=== PATIENT | female | born 1955 | race Caucasian/White ===

== ENCOUNTER 2018-05-22 13:01 | Observation (INO) | payer MEDICARE, MEDICAID ==
[2018-05-22 13:36] LABS: #Basophils 0.1 thou/uL (0.0-0.2); #Eosinphils 0.1 thou/uL (0.0-0.7); #Lymphocytes 1.2 thou/uL (1.20-3.40); #Monocytes 0.4 thou/uL (0.11-0.59); #Neutrophils 3.9 thou/uL (1.40-6.50); %Basophils 0.9 % (0.0-1.0); %Eosinophils 1.9 % (0.0-10.0); %Lymphocytes 20.7 % (21.0-51.0); %Monocytes 6.7 % (0.0-10.0); %Neutrophils 69.9 % (42.0-75.0); Giant Platelets SLIGHT; Hemoglobin 16.7 g/dL (12.0-16.0); Large Platelets SLIGHT; MDiff Complete? YES; Mean Corpuscular HGB CONC 34.2 g/dL (32.0-36.0); Mean Corpuscular Hemoglobin 29.2 pg (27.0-31.0); Mean Corpuscular Volume 85.4 fL (78.0-98.0); Mean Platelet Volume 15.5 fL (7.4-10.4); Platelet Count 150 thou/uL (130-400); Platelet Morphology Comment Appears Adequate; RBC Distribution Width 13.2 % (11.5-14.5); Red Blood Cell (RBC) Count 5.71 mill/uL (4.20-5.40); White Blood Cell (WBC) Count 5.6 thou/uL (4.8-10.8)
[2018-05-22 13:45] LABS: ALT (SGPT) 15 U/L (8-55); AST (SGOT) 19 U/L (5-34); Albumin 4.2 g/dL (3.4-4.8); Alkaline Phosphatase 190 U/L (40-150); Anion Gap 20 mmol/L (10-20); BUN (Urea Nitrogen) 12 mg/dL (9.8-20.1); Bilirubin, Total 0.8 mg/dL (0.2-1.2); CK (CPK) 63 U/L (29-168); Calc. Creatinine Clearance 0 mL/min (70-130); Calcium 10.4 mg/dL (7.8-10.44); Carbon Dioxide 18 mmol/L (23-31); Chloride 100 mmol/L (98-107); Estimated GFR-MDRD 46; Globulin 2.7 g/dL (2.4-3.5); Glucose 207 mg/dL (80-115); Potassium 3.2 mmol/L (3.5-5.1); Protein, Total 6.9 g/dL (6.0-8.3); Sodium 135 mmol/L (136-145)
--- NOTE | 2018-05-22 14:38 | RAD ---
CHEST 2 VIEWS: Date: 05/22/18 HISTORY: Mid sternal chest pain. FINDINGS: Heart size is within normal limits. Lungs are clear. No confluent pneumonia, overt edema, or pleural effusion. IMPRESSION: No acute intrathoracic disease. POS: [facility]
[2018-05-22] MEDS ORDERED: Potassium Chloride 20 MEQ TAB ONE (15:20)
[2018-05-22] MEDS ORDERED: Aspirin Chewable 81 MG TAB ONE (15:56)
[2018-05-22] MEDS ORDERED: Nitroglycerin 2% Ointment 1 INCH/1 GM Packet ONE (15:56)
[2018-05-22 16:19] LABS: Troponin I 0.022 ng/mL (< 0.028)
[2018-05-22] MEDS ORDERED: Acetaminophen 325 MG TAB PO PRN (17:16)
[2018-05-22] MEDS ORDERED: Ondansetron PF 4 MG/2 ML Vial IVP PRN (17:16)
[2018-05-22] MEDS ORDERED: Ondansetron ODT 4 MG TAB SL PRN (17:16)
[2018-05-22 17:29] VITALS: BMI 34.8
[2018-05-22] MEDS ORDERED: Nitroglycerin 0.4 MG TAB (25 Tab Bottle) PO PRN (18:41)
[2018-05-22] MEDS ORDERED: HumaLOG 300 UNITS/3 ML VIAL SC PRN (18:43)
[2018-05-22] MEDS ORDERED: Dextrose 5% in Water 1,000 ML IV PRN (18:43)
[2018-05-22] MEDS ORDERED: Dextrose 50% Abboject 50 ML SYRINGE SLOW IVP PRN (18:43)
[2018-05-22] MEDS ORDERED: hydrALAZINE 20 MG/ML VIAL SLOW IVP PRN (18:44)
[2018-05-22 19:15] LABS: Troponin I 0.014 ng/mL (< 0.028)
[2018-05-22] MEDS ORDERED: Amlodipine 5 MG TAB PO SCH (19:15)
--- NOTE | 2018-05-22 19:32 | HP ---
PRIMARY CARE PROVIDER: Dr. De Barlow. CHIEF COMPLAINT: Chest pain. HISTORY OF PRESENT ILLNESS: Please note, Ms. Navarrete recently moved to this area and is in the process of setting up her health care. She has an appointment with Dr. Barlow on May 30, 2018. Ms. Navarrete is a pleasant 63-year-old lady, who was seen at [facility] on May 22, 2018. She has a history of diabetes mellitus and hypertension. She reports that she has not taken her medications in more than a month. She also reports that over the last one month, she has been having retrosternal chest pain. She reports that the pain is worse over the last couple of weeks. She describes it as retrosternal, stabbing, radiating to the left side of her chest and to the left axilla, worse with exertion, 8/10 at its worst, accompanied by shortness of breath, diaphoresis, nausea, and headache. She denies any fevers or chills. She reports that the pain improves with rest. Ms. Navarrete reports that today she almost fell because of lightheadedness accompanying her chest pain and had to lower herself to the ground. She denies any head trauma or loss of consciousness. REVIEW OF SYSTEMS: All other systems reviewed and found to be negative. PAST MEDICAL HISTORY: Diabetes mellitus, type 2 and hypertension. PAST SURGICAL HISTORY: None. PSYCHIATRIC HISTORY: Schizophrenia. SOCIAL HISTORY: The patient denies tobacco use, alcohol use, or recreational drug use. FAMILY HISTORY: Significant for coronary artery disease and cancer in her father. CODE STATUS: I discussed her code status. She is DNAR. ALLERGIES: CODEINE. CURRENT MEDICATIONS: None, since she has been noncompliant with her medications. PHYSICAL EXAMINATION: GENERAL: On examination, Ms. Navarrete is awake and alert, not in acute distress. VITAL SIGNS: Blood pressure is 191/90, pulse 69, respiratory rate 16, and oxygen saturation 96% on room air. She is afebrile. She is obese, with a BMI of 34.9. EYES: No scleral icterus. No conjunctival pallor. ENT: Moist mucosal membranes. No oropharyngeal erythema or exudates. NECK: Supple, nontender, trachea is midline. RESPIRATORY: Accessory muscles of breathing are not active. Chest wall movements are symmetric bilaterally. Lungs are clear to auscultation without wheeze, rhonchi, or crepitations. CARDIOVASCULAR: S1 and S2 are heard, regular. Peripheral pulses palpable. No carotid bruit. No pericardial rub. ABDOMEN: Soft, nontender, bowel sounds are heard, no hepatomegaly, no splenomegaly. NEUROLOGIC: Cranial nerves 2 through 12 intact, deep tendon reflexes 2+. MUSCULOSKELETAL: Power is 5/5 in all four extremities. SKIN: No rashes or subcutaneous nodules. LYMPHATIC: No cervical lymphadenopathy. PSYCHIATRIC: Normal mood, normal affect, the patient is oriented to person, place, and time. LABORATORY DATA: Ms. Navarrete' labs and investigations were reviewed. I reviewed her electrocardiogram, which shows normal sinus rhythm, no ST changes to suggest an acute coronary syndrome. I also reviewed her chest x-ray, which does not show any pulmonary infiltrates. Normal white count, elevated hemoglobin of 16.7, normal platelet count. Decreased sodium of 135, decreased potassium of 3.2, elevated creatinine of 1.18, elevated alkaline phosphatase of 190, otherwise unremarkable comprehensive metabolic profile. Normal magnesium. Normal TSH. Normal Troponin I. ASSESSMENT AND PLAN: Ms. Navarrete is a pleasant 63-year-old lady, who was seen at [facility] on May 22, 2018. Her problem list includes: 1. Chest pain: Ms. Navarrete is presenting with chest pain of unknown etiology. Given her significant risk factors, she will be admitted to the hospital for telemetry monitoring and to rule out acute coronary syndrome. We will order a nuclear stress test. Further management depending on outcome of the test. We will start her on aspirin at this time. 2. Diabetes mellitus, type 2: Ms. Navarrete has been noncompliant with her medications. We will start her on glipizide, Accu-Cheks, and insulin sliding scale. 3. Hypertension: Her blood pressure is high at this time. We will start her on Norvasc, monitor vital signs, and titrate antihypertensives as needed. 4. History of schizophrenia: She reports history of schizophrenia. She does not recall the name of her medication. This will need to be addressed as outpatient. 5. Hypokalemia: We will replace potassium and recheck. 6. Hyponatremia: We will provide normal saline and recheck her sodium level. Many thanks for allowing me to participate in your patient's care. Please feel free to contact me with any questions or concerns. LEVEL OF RISK: High. LEVEL OF COMPLEXITY: High. Job ID: [id number]
[2018-05-22] MEDS: Heparin 5,000 UNITS/ML VIAL SC SCH (20:23)
[2018-05-23 06:16] LABS: Anion Gap 12 mmol/L (10-20); BUN (Urea Nitrogen) 12 mg/dL (9.8-20.1); Calc. Creatinine Clearance 95 mL/min (70-130); Calcium 9.3 mg/dL (7.8-10.44); Carbon Dioxide 23 mmol/L (23-31); Chloride 108 mmol/L (98-107); Estimated GFR-MDRD 71; Glucose 110 mg/dL (80-115); Potassium 3.4 mmol/L (3.5-5.1); Sodium 140 mmol/L (136-145)
[2018-05-23 06:30] LABS: #Eosinphils 0.2 thou/uL (0.0-0.7); #Lymphocytes 1.4 thou/uL (1.20-3.40); #Monocytes 0.5 thou/uL (0.11-0.59); #Neutrophils 2.3 thou/uL (1.40-6.50); %Basophils 0.3 % (0.0-1.0); %Eosinophils 3.8 % (0.0-10.0); %Lymphocytes 31.5 % (21.0-51.0); %Monocytes 10.5 % (0.0-10.0); %Neutrophils 53.8 % (42.0-75.0); Hemoglobin 14.8 g/dL (12.0-16.0); Mean Corpuscular HGB CONC 33.3 g/dL (32.0-36.0); Mean Corpuscular Hemoglobin 29.4 pg (27.0-31.0); Mean Corpuscular Volume 88.3 fL (78.0-98.0); Mean Platelet Volume 12.8 fL (7.4-10.4); Platelet Count 112 thou/uL (130-400); Platelet Morphology Comment Appears Decreased; RBC Distribution Width 13.7 % (11.5-14.5); RBC Morphology Normal; Red Blood Cell (RBC) Count 5.02 mill/uL (4.20-5.40); White Blood Cell (WBC) Count 4.3 thou/uL (4.8-10.8)
[2018-05-23] MEDS ORDERED: ADENOSINE 60 MG/20 ML VIAL ONE (07:19)
[2018-05-23] MEDS: Amlodipine 5 MG TAB PO SCH (10:11)
[2018-05-23] MEDS: Heparin 5,000 UNITS/ML VIAL SC SCH ×3 (10:12→20:16)
[2018-05-23] MEDS: Aspirin 325 mg Enteric Coated Tablet PO SCH (10:12)
--- NOTE | 2018-05-23 15:23 | NM ---
MYOCARDIAL PERFUSION EVALUATION: CLINICAL HISTORY: A 63-year-old female, with chest pain. RADIOPHARMACEUTICAL: 31.6 mCi and 9 mCi Technetium 99m sestamibi IV administered at stress and rest. Please reference the stress EKG portion of the exam through the division of cardiology for further de tails. FINDINGS: Evaluation of rotational raw data stable patient positioning. There is diminished uptake within the mid to distal anterior septum as well as at the apex. There is reversibility demonstrated with rest imaging. Evaluation of gated imaging reveals wall motion and contractility with an LVEF calculated at 65%. IMPRESSION: Abnormal myocardial perfusion evaluation. There is reversible deficit noted at the mid to distal ant erior septum/apex. No significant wall motion abnormalities. Findings favor ischemia. POS: [facility]
--- NOTE | 2018-05-23 15:58 | PDOC.PN ---
- Subjective Encounter Start Date: 05/23/18 Encounter Start Time: 15:56 Pt seen for followup re: chest pain. Denies chest pain, shortness of breath, fevers or chills. - Objective Resuscitation Status - Order Detail: 05/22/18 18:46 Resuscitation Status Routine Resuscitation Status: DNAR: NO Resuscitation Discussed with: patient BEN Reviewed: Yes Vital Signs & Weight: Vital Signs (12 hours) Temp Pulse Resp BP Pulse Ox 05/23/18 07:22 97.4 F L 63 14 137/69 97 05/23/18 04:14 96 05/23/18 04:13 97.5 F L 60 14 127/63 97 Weight Weight 192 lb 4.8 oz I&O: 05/22/18 05/23/18 05/24/18 06:59 06:59 06:59 Intake Total 1460 Output Total 1000 Balance 460 Result Diagrams: 05/23/18 05:11 05/23/18 05:11 Additional Labs: Accuchecks 05/23/18 05/22/18 05/22/18 05:58 20:23 17:16 POC Glucose 106 330 H 121 H EKG Reviewed by me: Yes (Tele: NSR) Phys Exam - Physical Examination Constitutional: NAD HEENT: moist MMs, sclera anicteric, oral pharynx no lesions, 2+ tonsils Neck: no nodes, no JVD, supple, full ROM Respiratory: clear to auscultation bilateral Cardiovascular: RRR, no rub S1, S2 Neurological: moves all 4 limbs Psychiatric: normal affect Dx/Plan (1) Chest pain Code(s): R07.9 - CHEST PAIN, UNSPECIFIED Status: Acute Comment: Improved, stress test is abnormal, consult cardiology (2) DM2 (diabetes mellitus, type 2) Status: Chronic Comment: continue accuchecks, insulin sliding scale (3) HTN (hypertension) Code(s): I10 - ESSENTIAL (PRIMARY) HYPERTENSION Status: Chronic Comment: controlled (4) Schizophrenia Code(s): F20.9 - SCHIZOPHRENIA, UNSPECIFIED Status: Chronic Comment: Pt to followup with PCP re: treatment - Plan * . Review of Systems - Review of Systems Constitutional: negative: fever, chills, sweats, weakness, malaise Respiratory: negative: Cough, Shortness of Breath, SOB with Excertion, Pleuritic Pain, Wheezing Cardiovascular: negative: chest pain, palpitations, orthopnea, paroxysmal nocturnal dyspnea, edema, light headedness Gastrointestinal: negative: Nausea, Vomiting, Abdominal Pain, Diarrhea, Constipation, Melena, Hematochezia Genitourinary: negative: Dysuria, Frequency, Incontinence, Hematuria, Retention - Medications/Allergies Allergies/Adverse Reactions: Allergies Allergy/AdvReac Type Severity Reaction Status Date / Time codeine Allergy Swollen Verified 05/22/18 17:20 Lips Medications: Current Medications Amlodipine Besylate (Norvasc) 5 mg PO DAILY [facility] Last Admin: 05/23/18 10:11 Dose: Not Given Aspirin (Ecotrin) 325 mg PO DAILY [facility] Last Admin: 05/23/18 10:12 Dose: Not Given Dextrose/Water (Dextrose 50%) 25 gm SLOW IVP PRN PRN PRN Reason: Hypoglycemia Glipizide (Glucotrol Xl) 2.5 mg PO QAM-WM [facility] Last Admin: 05/23/18 10:11 Dose: Not Given Glucagon (Glucagon) 1 mg IM PRN PRN PRN Reason: Hypoglycemia Heparin Sodium (Porcine) (Heparin) 5,000 units SC TID [facility] Last Admin: 05/23/18 15:40 Dose: 5,000 units Hydralazine HCl (Apresoline) 10 mg SLOW IVP Q6H PRN PRN Reason: SBP Greater Than 170 Dextrose/Water (D5w) 1,000 mls @ 0 mls/hr IV .Q0M PRN PRN Reason: Hypoglycemia Potassium Chloride 40 meq/ (Sodium Chloride) 1,020 mls @ 75 mls/hr IV .[id number] [facility] Last Admin: 05/23/18 12:57 Dose: 1,020 mls Insulin Human Lispro (Humalog) 0 units SC .MILD SLIDING SCALE PRN PRN Reason: Mild Correctional Scale Nitroglycerin (Nitrostat) 0.4 mg PO Q5MIN PRN PRN Reason: Chest Pain
[2018-05-23] MEDS ORDERED: Communication Order-Pharmacy FS SCH (19:00)
--- NOTE | 2018-05-23 19:04 | CON ---
DATE OF CONSULTATION: 05/22/2018 REASON FOR CONSULTATION: Chest pain and abnormal stress study. HISTORY OF PRESENT ILLNESS: Ms. Navarrete is a 63-year-old woman with past history of diabetes mellitus and hypertension, who re-presented with chest pain. She states she had been having chest pain with exertion over the last several weeks. It has worsened over the last one week. She recently presented to emergency room with the above. She underwent a noninvasive stress study that did suggest ischemia present in the apex and anteroseptal region. LVEF was normal. PAST MEDICAL HISTORY: As above, schizophrenia. SOCIAL HISTORY: No current tobacco or alcohol use. FAMILY HISTORY: Negative for CAD. ALLERGIES: CODEINE. HOME MEDICATIONS: None. There was concern for compliance. REVIEW OF SYSTEMS: Ten-point review of systems is reviewed and as above, otherwise negative. PHYSICAL EXAMINATION: VITAL SIGNS: Blood pressure 145/82, pulse 64, and temperature 97.6. GENERAL: Patient is a pleasant female, who is in no acute distress. The patient appears their stated age. NEUROLOGIC: The patient is alert and oriented x3 with no focal neurologic deficits. HEENT: Sclerae without icterus. Mouth has moist mucous membranes with normal pallor. NECK: No JVD. Carotid upstroke brisk. No bruits bilaterally. LUNGS: Clear to auscultation with unlabored respirations. BACK: No scoliosis or kyphosis. CARDIAC: Regular rate and rhythm with normal S1 and S2. No S3 or S4 noted. No significant rubs, murmurs, thrills, or gallops noted throughout the precordium. PMI is not displaced. There is no parasternal heave. ABDOMEN: Soft, nontender, nondistended. No peritoneal signs present. No hepatosplenomegaly. No abnormal striae. EXTREMITIES: 2+ femoral and 2+ dorsalis pedis pulses. No cyanosis, clubbing, or edema. SKIN: No gross abnormalities. PERTINENT LABORATORY DATA: Hemoglobin 14.8, hematocrit 44.8. Creatinine 0.81. IMPRESSION: 1. Chronic angina with accelerating symptoms. 2. Abnormal stress study. 3. Risk factors for coronary artery disease. RECOMMENDATIONS: I discussed a conservative versus more aggressive approach. After outlining both, she has opted to proceed with coronary angiography. I discussed the procedure in full detail with Ms. Navarrete. Risks included, but not limited to . All questions were answered. Given the above, the patient agreed to proceed with the above procedure. Further recommendations pending the above. Job ID: [id number] [facility]
[2018-05-24 04:59] LABS: #Eosinphils 0.2 thou/uL (0.0-0.7); #Lymphocytes 1.3 thou/uL (1.20-3.40); #Monocytes 0.3 thou/uL (0.11-0.59); #Neutrophils 1.5 thou/uL (1.40-6.50); %Basophils 1.4 % (0.0-1.0); %Eosinophils 4.7 % (0.0-10.0); %Monocytes 8.5 % (0.0-10.0); %Neutrophils 45.5 % (42.0-75.0); Hemoglobin 14.6 g/dL (12.0-16.0); Mean Corpuscular HGB CONC 33.1 g/dL (32.0-36.0); Mean Corpuscular Hemoglobin 29.3 pg (27.0-31.0); Mean Corpuscular Volume 88.6 fL (78.0-98.0); Mean Platelet Volume 12.5 fL (7.4-10.4); Platelet Count 105 thou/uL (130-400); RBC Distribution Width 13.9 % (11.5-14.5); Red Blood Cell (RBC) Count 4.96 mill/uL (4.20-5.40); White Blood Cell (WBC) Count 3.4 thou/uL (4.8-10.8)
[2018-05-24 05:17] LABS: Anion Gap 14 mmol/L (10-20); BUN (Urea Nitrogen) 9 mg/dL (9.8-20.1); Calc. Creatinine Clearance 93 mL/min (70-130); Calcium 9.5 mg/dL (7.8-10.44); Carbon Dioxide 23 mmol/L (23-31); Chloride 108 mmol/L (98-107); Estimated GFR-MDRD 69; Glucose 132 mg/dL (80-115); Potassium 3.9 mmol/L (3.5-5.1); Sodium 141 mmol/L (136-145)
[2018-05-24] MEDS: Amlodipine 5 MG TAB PO SCH (05:47)
[2018-05-24] MEDS: Aspirin 325 mg Enteric Coated Tablet PO SCH (05:47)
[2018-05-24] MEDS: Heparin 5,000 UNITS/ML VIAL SC SCH ×2 (05:48→16:41)
[2018-05-24] MEDS ORDERED: Iopamidol 370 76% 100 ML VIAL ONE (07:19)
[2018-05-24] MEDS ORDERED: Verapamil 5 MG/2 ML VIAL ONE (10:18)
[2018-05-24] MEDS ORDERED: Adenosine 6 MG/2 ML VIAL ONE (10:18)
[2018-05-24] MEDS ORDERED: Heparin 10,000 UNITS/1 ML VIAL ONE (10:18)
[2018-05-24] MEDS ORDERED: Nitroglycerin 100MG/250ML BOT 0 ML ONE (10:18)
[2018-05-24] MEDS ORDERED: Fentanyl 100 MCG/2 ML VIAL ONE (13:06)
[2018-05-24] MEDS ORDERED: Midazolam HCl 2 mg/2 ml Vial ONE (13:06)
[2018-05-24] MEDS ORDERED: Sodium Chloride 0.9% 200 ML IV PRN (13:20)
[2018-05-24] MEDS ORDERED: Nitroglycerin 0.4 MG TAB (25 Tab Bottle) SL PRN (13:20)
[2018-05-24] MEDS ORDERED: Sodium Chloride 0.9% 1,000 ML IV SCH (13:30)
--- NOTE | 2018-05-24 16:02 | PDOC.PN ---
- Subjective Encounter Start Date: 05/24/18 Encounter Start Time: 12:00 Pt seen for followup re: chest pain. Feels better, no complaints today. - Objective Resuscitation Status - Order Detail: 05/22/18 18:46 Resuscitation Status Routine Resuscitation Status: DNAR: NO Resuscitation Discussed with: patient BEN Reviewed: Yes Vital Signs & Weight: Vital Signs (12 hours) Temp Pulse Resp BP BP Pulse Ox 05/24/18 13:46 97.7 F 60 16 144/73 H 96 05/24/18 11:15 97.8 F 62 21 H 145/75 H 98 05/24/18 07:15 97.4 F L 59 L 24 H 136/65 97 05/24/18 05:47 56 L 143/67 H Weight Weight 191 lb 4.8 oz I&O: 05/23/18 05/24/18 05/25/18 06:59 06:59 06:59 Intake Total 1460 2392 Output Total 1000 1600 Balance 460 792 Result Diagrams: 05/24/18 04:37 05/24/18 04:37 Additional Labs: Accuchecks 05/24/18 05/23/18 05/23/18 10:55 20:51 16:54 POC Glucose 149 H 128 H 127 H EKG Reviewed by me: Yes (Tele: NSR) Phys Exam - Physical Examination Constitutional: NAD HEENT: moist MMs Neck: supple Respiratory: clear to auscultation bilateral Cardiovascular: RRR Gastrointestinal: soft Neurological: moves all 4 limbs Psychiatric: normal affect Dx/Plan (1) Chest pain Code(s): R07.9 - CHEST PAIN, UNSPECIFIED Status: Acute Comment: awaiting cath (2) Hypokalemia Code(s): E87.6 - HYPOKALEMIA Status: Acute Comment: replace potassium (3) DM2 (diabetes mellitus, type 2) Status: Chronic Comment: on accuchecks, insulin sliding scale (4) HTN (hypertension) Code(s): I10 - ESSENTIAL (PRIMARY) HYPERTENSION Status: Chronic Comment: controlled (5) Schizophrenia Code(s): F20.9 - SCHIZOPHRENIA, UNSPECIFIED Status: Chronic Comment: Pt to followup with PCP re: treatment - Plan * . Review of Systems - Review of Systems Cardiovascular: negative: chest pain, palpitations, orthopnea, paroxysmal nocturnal dyspnea, edema, light headedness Gastrointestinal: negative: Nausea, Vomiting, Abdominal Pain, Diarrhea, Constipation, Melena, Hematochezia - Medications/Allergies Allergies/Adverse Reactions: Allergies Allergy/AdvReac Type Severity Reaction Status Date / Time codeine Allergy Swollen Verified 05/22/18 17:20 Lips Medications: Current Medications Amlodipine Besylate (Norvasc) 5 mg PO DAILY [facility] Last Admin: 05/24/18 05:47 Dose: 5 mg Aspirin (Ecotrin) 325 mg PO DAILY [facility] Last Admin: 05/24/18 05:47 Dose: 325 mg Dextrose/Water (Dextrose 50%) 25 gm SLOW IVP PRN PRN PRN Reason: Hypoglycemia Glipizide (Glucotrol Xl) 2.5 mg PO QAM[facility] Last Admin: 05/24/18 05:47 Dose: Not Given Glucagon (Glucagon) 1 mg IM PRN PRN PRN Reason: Hypoglycemia Heparin Sodium (Porcine) (Heparin) 5,000 units SC TID [facility] Last Admin: 05/24/18 05:48 Dose: Not Given Hydralazine HCl (Apresoline) 10 mg SLOW IVP Q6H PRN PRN Reason: SBP Greater Than 170 Dextrose/Water (D5w) 1,000 mls @ 0 mls/hr IV .Q0M PRN PRN Reason: Hypoglycemia Potassium Chloride 40 meq/ (Sodium Chloride) 1,020 mls @ 75 mls/hr IV .[id number] [facility] Last Admin: 05/24/18 11:40 Dose: Not Given Sodium Chloride (Normal Saline 0.9%) 1,000 mls @ 125 mls/hr IV .Q8H [facility] Stop: 05/24/18 17:31 Last Admin: 05/24/18 13:50 Dose: 1,000 mls Sodium Chloride (Normal Saline 0.9%) 200 mls @ 0 mls/hr IV ONE PRN PRN Reason: SBP < 90 Stop: 05/25/18 13:21 Insulin Human Lispro (Humalog) 0 units SC .MILD SLIDING SCALE PRN PRN Reason: Mild Correctional Scale Nitroglycerin (Nitrostat) 0.4 mg PO Q5MIN PRN PRN Reason: Chest Pain Nitroglycerin (Nitrostat) 0.4 mg SL Q5MIN PRN PRN Reason: Chest Pain
[2018-05-24] MEDS ORDERED: Potassium Chloride 20 MEQ TAB PO SCH (16:15)
[2018-05-24 16:27] VITALS: BP 140/67; TEMP 98
--- NOTE | 2018-05-25 14:08 | DIS ---
DATE OF ADMISSION: 05/22/2018 DATE OF DISCHARGE: 05/24/2018 PRIMARY CARE PROVIDER: De Barlow MD DISCHARGE DIAGNOSES: 1. Chest pain. 2. Mild coronary artery disease. CONDITION: Condition of the patient on the day of discharge: Stable. I assessed Ms. Navarrete on the day of discharge. Please refer to my daily hospitalist progress note for further details regarding this [id number] encounter. DISCHARGE MEDICATIONS: 1. Amlodipine 5 mg daily. 2. Aspirin 81 mg daily. 3. Glipizide 2.5 mg daily. CONSULTATIONS DURING THIS HOSPITALIZATION: Cardiology, Dr. Starkey. HOSPITAL COURSE: Ms. Navarrete is a pleasant 63-year-old lady, who was admitted to [facility] for chest pain on 05/22/2018. She had nuclear stress test, which was abnormal. There was a reversible deficit at the mid to distal anterior septum/apex. There were no significant wall motion abnormalities. The findings favored ischemia. Cardiology Service was consulted. On 05/24, she underwent cardiac catheterization. The preliminary report was that she had mild coronary artery disease and has been cleared by Cardiology Service for discharge. Her chest pain also resolved following admission. She was discharged home in a stable condition. Please note that final cardiac cath report is pending at the time of this dictation. Many thanks for allowing me to participate in your patient's care. Please feel free to contact me with any questions or concerns. DISCHARGE DESTINATION: Home. Job ID: [id number]
== END 2018-05-24 19:27 | disposition home or self-care (01) ==
LOC: SCSER 13:01 → 2SW 15:27
PROVIDERS: ADMIT Family Medicine; ATTEND Family Medicine
PROC: 4A023N7 Measurement of Cardiac Sampling and Pressure, Left Heart, Percutaneous Approach (ICD-10-PCS; principal; 2018-05-24)
PROC: B2111ZZ Fluoroscopy of Multiple Coronary Arteries using Low Osmolar Contrast (ICD-10-PCS; 2018-05-24)
DX: R07.9 Chest pain, unspecified (principal); I25.119 Atherosclerotic heart disease of native coronary artery with unspecified angina pectoris; E11.9 Type 2 diabetes mellitus without complications; I10 Essential (primary) hypertension; F20.9 Schizophrenia, unspecified; E87.1 Hypo-osmolality and hyponatremia; E87.6 Hypokalemia; Z66 Do not resuscitate; Z88.5 Allergy status to narcotic agent; Z91.14 Patient's other noncompliance with medication regimen
CPT/HCPCS: 71046; 76942; 78452; 80048 ×2; 82550; 82962 ×3; 83735; 84484 ×2; 85025 ×2; 93005; 93017; 93458; 94760 ×3; 96365; 96366 ×3; 99285; A9500; C1769; G0378 ×2; 36415; 36416; 80053; 84443; 99152; J0153; J1644; J2250; J3010; J3480; J7050; Q9967